=== PATIENT | male | born 1965 | race American Indian/Alaskan Native ===

== ENCOUNTER 2020-12-17 02:44 | Emergency (ER) | payer OTHER ==
[~2020-12-17] VITALS: Ht 177.8 cm; Wt 95.2 kg
[~2020-12-17 02:44] MED LIST: AMOCLA875 PO; CEPH500 PO; CLON.2 PO; DEXT15ER PO; FAMO20 PO; HYDACE5 PO; LORA1 PO; LORA2 PO; LOSA50 PO; MECL25 PO; METH10; METH10 PO; METO10 PO; MUPI2TO TOP; OMEP20ER PO; OMEP40CA12 PO; OXYACE5T PO; PENVK500 PO; PROC10 PO; PROM25 PO; RXLORA1 PO; RXSULTRIDS PO; SULTRIDS PO; SULTRISS
[2020-12-17] MEDS ORDERED: PANT40 PO (03:11)
[2020-12-17] MEDS ORDERED: ATOR20 PO (03:12)
== END 2020-12-17 04:36 | disposition home or self-care (01) ==
LOC: ER 02:44
DX: F11.23 Opioid dependence with withdrawal (principal); I10 Essential (primary) hypertension; Z79.899 Other long term (current) drug therapy
CPT/HCPCS: 99283

== ENCOUNTER 2021-07-26 23:55 | Emergency (ER) | payer OTHER ==
[~2021-07-26] VITALS: Ht 177.8 cm; Wt 97.5 kg
[~2021-07-26 23:55] MED LIST changes: +ATOR20 PO; +PANT40 PO
[2021-07-27] MEDS ORDERED: BUPRENORP-NALO1 EAC3 SL (00:10)
[2021-07-27] MEDS ORDERED: DEXTROAMPHETAMI PO (00:11)
== END 2021-07-27 00:59 | disposition home or self-care (01) ==
LOC: ER 23:55
DX: F11.23 Opioid dependence with withdrawal (principal); Z76.0 Encounter for issue of repeat prescription
CPT/HCPCS: 99281; J0572

== ENCOUNTER → 2021-07-27 | Outpatient (CLI) | payer OTHER ==
[~2021-07-27] MED LIST changes: +BUPRENORP-NALO1 EAC3 SL; +DEXTROAMPHETAMI PO
[2021-07-27 16:28] LABS: U Amphetamine Screen DETECTED; U Methamphetamine Screen DETECTED; U Opiates Screen DETECTED
[2021-07-27 16:29] LABS: U Barbituate Screen Not Detected; U Benzodiazapine Screen Not Detected; U Buprenorphine Screen DETECTED; U Cannabinoids Screen DETECTED; U Cocaine Screen Not Detected; U Methadone Screen Not Detected; U Oxycodone Screen Not Detected; U Phencyclidine Screen Not Detected; U Propoxyphene Screen Not Detected
== END | disposition home or self-care (01) ==
LOC: LAB SHORT 15:36
PROVIDERS: Nurse Practitioner Family
DX: Z51.81 Encounter for therapeutic drug level monitoring (principal); Z79.899 Other long term (current) drug therapy

== ENCOUNTER 2021-12-19 10:43 | Emergency (ER) | payer OTHER ==
[~2021-12-19] VITALS: Ht 177.8 cm; Wt 99.8 kg
[2021-12-19] MEDS ORDERED: NAPROXEN250 M1 PO (11:18)
== END 2021-12-19 11:29 | disposition home or self-care (01) ==
LOC: ER 10:43
DX: M10.9 Gout, unspecified (principal)
CPT/HCPCS: 99283

== ENCOUNTER 2022-10-20 13:17 | Emergency (ER) | payer OTHER ==
[~2022-10-20] VITALS: Ht 177.8 cm; Wt 97.5 kg
[~2022-10-20 13:17] MED LIST changes: +NAPROXEN250 M1 PO
[2022-10-20 13:48] LABS: Source, Urine Clean Catch
[2022-10-20 14:06] LABS: Appearance, Urine Clear (Clear); Bilirubin, Urine Neg (Neg); Blood, Urine Neg (Neg); Color, Urine Yellow (P-Yellow); Glucose Qualitative, Urine Neg (Neg); Ketones, Urine Neg (Neg); Leukocyte Esterase, Urine Neg (Neg); Nitrite, Urine Neg (Neg); Protein, Urine Neg (Neg); Specific Gravity, Urine 1.025 (1.003-1.022); Urobilinogen, Urine NORM (Normal)
== END 2022-10-20 16:30 | disposition home or self-care (01) ==
LOC: ER 13:17
PROVIDERS: Student in an Organized Health Care Education/Training Program
DX: R35.0 Frequency of micturition (principal); R10.2 Pelvic and perineal pain; N50.82 Scrotal pain; I10 Essential (primary) hypertension; Z79.899 Other long term (current) drug therapy; Z53.21 Procedure and treatment not carried out due to patient leaving prior to being seen by health care provider
CPT/HCPCS: 51798; 76870; 81003; A9270